=== PATIENT | female | born 1985 | race Two or more races ===

== ENCOUNTER 2021-02-17 20:12 | Emergency (ER) | payer BC ==
[~2021-02-17] VITALS: Ht 170.2 cm; Wt 68.0 kg
== END 2021-02-17 22:26 | disposition home or self-care (01) ==
LOC: ER 20:12
DX: S01.82XA Laceration with foreign body of other part of head, initial encounter (principal); W18.09XA Striking against other object with subsequent fall, initial encounter; Y93.89 Activity, other specified; Y92.488 Other paved roadways as the place of occurrence of the external cause; Y99.8 Other external cause status